=== PATIENT | female | born 1945 | race Caucasian/White ===

== ENCOUNTER 2017-12-22 23:45 | Emergency (ER) | payer MEDICARE, BC ==
--- NOTE | 2017-12-23 00:04 | EDM.PDOC ---
ED HPI GENERAL MEDICAL PROBLEM - General Chief Complaint: General Stated Complaint: dizzy arm pain Time Seen by Provider: 12/23/17 00:03 Source of Information: Reports: Patient, Family (spouse.) History Limitations: Reports: No Limitations - History of Present Illness INITIAL COMMENTS - FREE TEXT/NARRATIVE: 72-year-old female brought to the ED by her just due to feeling ill at home tonight. Symptoms started about 2 hours ago. She states she just doesn't feel right. She was having increased pain in her right shoulder down her right arm. She did shortness of breath. [place] a little dizzy lightheaded and a bit off in terms of balance. She states now she is feeling better. She takes gabapentin in the evenings and she does admit she did not eat that much for supper tonight. She has had no recent increased and dosages of 90 per medications. Blood pressure is mildly elevated at the time of exam. O2 sats 100% on room air. Respiratory rate of 20 by history patient has chronic musculoskeletal pain in all of her extremities which she relates is due to arthritis. Never been labeled as having fibromyalgia syndrome. Denies fever or chills. Denies any recent illnesses. Denies cough or sputum production. No recent prolonged travel history Onset: Today Onset Date: 12/22/17 Onset Time: 22:00 Duration: Hour(s): Location: Reports: Generalized (In light sense of feeling unwell with increased right shoulder pain shortness of breath and feeling dizzy and lightheaded. Feeling better at the time of examination) Quality: Reports: Other (Deep aching pain in her right shoulder and arm which is better now than it was.) Severity: Moderate (Initially the pain was 7 or 8 out of 10 now down to 2 or 3 which she states is her normal.) Improves with: Reports: Other (Improves spontaneously) Worsens with: Reports: Movement Context: Denies: Activity, Exercise (Augmentin activity does seem to make her generalized body ache worse), Sick Contact, Trauma, Other Associated Symptoms: Reports: Confusion, Malaise, Nausea/Vomiting (Mild nausea earlier tonight and asked why she did not eat much for supper), Shortness of Breath, Weakness (Generalized). 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: Other (see below) (Only her usual medications) Generalized Pain Score (Numeric/FACES): 2 - Related Data Allergies Allergy/AdvReac Type Severity Reaction Status Date / Time amitriptyline Allergy Itching Verified 12/23/17 00:15 morphine Allergy Swelling Verified 12/23/17 00:15 topiramate [From Topamax] AdvReac Hypertensio Verified 12/23/17 00:15 n Home Meds: Home Meds Aspirin [Halfprin] 81 mg PO DAILY 03/25/14 [History] Cholecalciferol (Vitamin D3) [Vitamin D] 1,000 units PO DAILY 03/25/14 [History] Gabapentin [Neurontin] 300 mg PO DAILY 03/25/14 [History] Propranolol [Inderal] 60 mg PO DAILY 03/25/14 [History] hydroCHLOROthiazide [Hydrochlorothiazide] 0 mg PO ASDIRECTED 03/25/14 [History] Acetaminophen [Tylenol Arthritis] 650 mg PO Q6HR PRN 12/23/17 [History] Gabapentin [Neurontin] 600 mg PO BEDTIME 12/23/17 [History] Multivitamin [Multi-Vitamin Daily] 1 tab PO DAILY 12/23/17 [History] Pravastatin Sodium [Pravachol] 12/23/17 [History] Past Medical History Cardiovascular History: Reports: High Cholesterol, Hypertension Gastrointestinal History: Reports: Other (See Below) (Occasional problems with diarrhea that she has to take Imodium for.) Musculoskeletal History: Reports: Osteoarthritis, Osteoporosis, Other (See Below ) (Normalized chronic pain syndrome typically chronic back pain. Has never been told she has fibromyalgia syndrome but she has multiple trigger points on examination.) Social & Family History - Living Situation & Occupation Living situation: Reports: Occupation: Retired ED ROS GENERAL - Review of Systems Review Of Systems: See Below Constitutional: Reports: Malaise, Weakness, Fatigue, Decreased Appetite ( Especially today.). Denies: Fever, Chills, Weight Loss HEENT: Reports: Glasses, Vertigo. Denies: Hearing Loss, Nosebleed, Nose Pain, Rhinitis, Sinus Problem, Throat Pain, Throat Swelling Respiratory: Reports: Shortness of Breath. Denies: Wheezing, Pleuritic Chest Pain (Mild vertigo symptoms earlier tonight.), Cough, Sputum Cardiovascular: Reports: Blood Pressure Problem (Chronic hypertension). Denies : Chest Pain Endocrine: Reports: Fatigue GI/Abdominal: Reports: Decreased Appetite, Nausea. Denies: Abdominal Pain, Anorexia, Vomiting (Mild intermittent) : Reports: Frequency. Denies: Dysuria, Flank Pain Musculoskeletal: Reports: Neck Pain, Shoulder Pain, Arm Pain, Back Pain, Hand Pain, Leg Pain, Joint Pain, Joint Swelling, Other ([place] hands and feet placed in her right big toe) Skin: Reports: No Symptoms Neurological: Reports: Paresthesia (Some paresthesias in her right arm and hand tonight. But was mostly deep aching pain) Psychiatric: Reports: No Symptoms Hematologic/Lymphatic: Reports: No Symptoms Immunologic: Reports: No Symptoms ED EXAM, GENERAL - Physical Exam Exam: See Below Exam Limited By: No Limitations General Appearance: Alert, WD/WN, Anxious (Moderately anxious.), Mild Distress Eye Exam: Bilateral Eye: Normal Inspection, Nystagmus Throat/Mouth: Normal Inspection, Normal Lips, Normal Teeth, Normal Oropharynx Head: Atraumatic, Normocephalic Neck: Normal Inspection, Supple, Non-Tender, Full Range of Motion. No: Carotid Bruit, Lymphadenopathy (L), Lymphadenopathy (R) Respiratory/Chest: No Respiratory Distress, Lungs Clear, Normal Breath Sounds, No Accessory Muscle Use, Respiratory Distress (Mild tachypnea at rest 20/m.), Other Cardiovascular: Normal Peripheral Pulses, Regular Rate, Rhythm, No Edema, No Gallop, No JVD, No Murmur (Kyphosis thoracic spine), No Rub Peripheral Pulses: 2+: Posterior Tibial (L), Posterior Tibial (R), Dorsalis Pedis (L), Dorsalis Pedis (R), 3+: Carotid (L), Carotid (R) GI/Abdominal: Normal Bowel Sounds, Soft, Non-Tender, No Organomegaly, No Mass, Pelvis Stable, Other (As had a hysterectomy.) Back Exam: Decreased Range of Motion (Mild kyphosis thoracic spine), Paraspinal Tenderness (Tender throughout the cervical the thoracic and lumbar spine particular on the right side.), Other Extremities: Normal Inspection ( No specific area of rib head subluxation identified), Normal Range of Motion, Non-Tender, No Pedal Edema, Other ( Evidence of osteophytic changes involving the PIP and DIP joints of her fingers right wrist) Neurological: Alert ( toes knees), Oriented, CN II-XII Intact, Normal Cognition Psychiatric: Anxious (Mildly anxious) Skin Exam: Warm, Dry, Intact, Normal Color, No Rash EKG INTERPRETATION EKG Date: 12/23/17 Time: 00:30 Rhythm: NSR Rate (Beats/Min): 72 [place]: LAD-Left [place] Deviation (-26.) P-Wave: Present QRS: Other (Initial poor R-wave progression in leads V1 to V3. Consider a possible old anteroseptal myocardial infarction. There is poor R-wave progression with delayed transition.) ST-T: Normal QT: Prolonged (Mildly prolonged) EKG Interpretation Comments: Abnormal ECG Course - Vital Signs Last Recorded V/S: Last Vital Signs Temp 36.2 C 12/22/17 23:57 Pulse 84 12/22/17 23:57 Resp 20 12/22/17 23:57 BP 183/95 H 12/22/17 23:57 Pulse Ox 100 12/22/17 23:57 - Orders/Labs/Meds Orders: Active Orders 24 hr Category Date Time Status EKG Documentation Completion [RC] STAT Care 12/23/17 00:15 Active Labs: Laboratory Tests 12/23/17 12/23/17 12/23/17 Range/Units 00:30 00:30 00:30 WBC 6.29 (3.98-10.04) K/mm3 RBC 4.24 (3.98-5.22) M/mm3 Hgb 12.4 (11.2-15.7) gm/L Hct 37.2 (34.1-44.9) % MCV 87.7 (79.4-94.8) fl MCH 29.2 (25.6-32.2) pg MCHC 33.3 (32.2-35.5) g/dl RDW Std Deviation 43.3 (36.4-46.3) fL Plt Count 207 (182-369) K/mm3 MPV 8.7 L (9.4-12.3) fl Neutrophils % (Manual) 63 H (40-60) % Band Neutrophils % 0 (0-10) % Lymphocytes % (Manual) 28 (20-40) % Atypical Lymphs % 1 % Monocytes % (Manual) 6 (2-10) % Eosinophils % (Manual) 1 (0.7-5.8) % Basophils % (Manual) 1 (0.1-1.2) Platelet Estimate Adequate Plt Morphology Comment Normal RBC Morph Comment Normal ESR 34 H (0-20) mm/hr D-Dimer, Quantitative (0.19-0.50) mg/L Sodium 140 (136-145) mEq/L Potassium 3.6 (3.5-5.1) mEq/L Chloride 107 (98-107) mEq/L Carbon Dioxide 26 (21-32) mEq/L Anion Gap 10.6 (5-15) BUN 25 H (7-18) mg/dL Creatinine 0.7 (0.55-1.02) mg/dL Est Cr Clr Drug Dosing 60.09 mL/min Estimated GFR (MDRD) > 60 (>60) mL/min BUN/Creatinine Ratio 35.7 H (14-18) Glucose 109 (83-115) mg/dL Calcium 8.9 (8.5-10.1) mg/dL Magnesium 2.2 (1.8-2.4) mg/dl Total Bilirubin 0.4 (0.2-1.0) mg/dL AST 21 (15-37) U/L ALT 31 (14-59) U/L Alkaline Phosphatase 68 (46-116) U/L CK-MB (CK-2) 1.2 (0-3.6) ng/ml Troponin I < 0.017 (0.00-0.056) ng/mL C-Reactive Protein 0.3 (<1.0) mg/dL Total Protein 7.0 (6.4-8.2) g/dl Albumin 3.8 (3.4-5.0) g/dl Globulin 3.2 gm/dL Albumin/Globulin Ratio 1.2 (1-2) Urine Color (Yellow) Urine Appearance (Clear) Urine pH (5.0-8.0) Ur Specific [place] (1.005-1.030) Urine Protein (Negative) Urine Glucose (UA) (Negative) Urine Ketones (Negative) Urine Occult Blood (Negative) Urine Nitrite (Negative) Urine Bilirubin (Negative) Urine Urobilinogen (0.2-1.0) Ur Leukocyte Esterase (Negative) Urine RBC (0-5) /hpf Urine WBC (0-5) /hpf Ur Epithelial Cells (0-5) /hpf Urine Bacteria (FEW) /hpf Urine Mucus (FEW) /hpf 12/23/17 12/23/17 Range/Units 00:30 00:53 WBC (3.98-10.04) K/mm3 RBC (3.98-5.22) M/mm3 Hgb (11.2-15.7) gm/L Hct (34.1-44.9) % MCV (79.4-94.8) fl MCH (25.6-32.2) pg MCHC (32.2-35.5) g/dl RDW Std Deviation (36.4-46.3) fL Plt Count (182-369) K/mm3 MPV (9.4-12.3) fl Neutrophils % (Manual) (40-60) % Band Neutrophils % (0-10) % Lymphocytes % (Manual) (20-40) % Atypical Lymphs % % Monocytes % (Manual) (2-10) % Eosinophils % (Manual) (0.7-5.8) % Basophils % (Manual) (0.1-1.2) Platelet Estimate Plt Morphology Comment RBC Morph Comment ESR (0-20) mm/hr D-Dimer, Quantitative 0.26 (0.19-0.50) mg/L Sodium (136-145) mEq/L Potassium (3.5-5.1) mEq/L Chloride (98-107) mEq/L Carbon Dioxide (21-32) mEq/L Anion Gap (5-15) BUN (7-18) mg/dL Creatinine (0.55-1.02) mg/dL Est Cr Clr Drug Dosing mL/min Estimated GFR (MDRD) (>60) mL/min BUN/Creatinine Ratio (14-18) Glucose (83-115) mg/dL Calcium (8.5-10.1) mg/dL Magnesium (1.8-2.4) mg/dl Total Bilirubin (0.2-1.0) mg/dL AST (15-37) U/L ALT (14-59) U/L Alkaline Phosphatase (46-116) U/L CK-MB (CK-2) (0-3.6) ng/ml Troponin I (0.00-0.056) ng/mL C-Reactive Protein (<1.0) mg/dL Total Protein (6.4-8.2) g/dl Albumin (3.4-5.0) g/dl Globulin gm/dL Albumin/Globulin Ratio (1-2) Urine Color Light yellow (Yellow) Urine Appearance Clear (Clear) Urine pH 7.5 (5.0-8.0) Ur Specific [place] 1.015 (1.005-1.030) Urine Protein Negative (Negative) Urine Glucose (UA) Negative (Negative) Urine Ketones Negative (Negative) Urine Occult Blood Negative (Negative) Urine Nitrite Negative (Negative) Urine Bilirubin Negative (Negative) Urine Urobilinogen 0.2 (0.2-1.0) Ur Leukocyte Esterase Negative (Negative) Urine RBC Not seen (0-5) /hpf Urine WBC Not seen (0-5) /hpf Ur Epithelial Cells 0-5 (0-5) /hpf Urine Bacteria Not seen (FEW) /hpf Urine Mucus Not seen (FEW) /hpf - Radiology Interpretation Free Text/Narrative:: 72-year-old female presents to the ED just generally not feeling well. She is coping by her . She states she filled offkilter she felt dizzy she felt increased pain in her right shoulder rating down her arm some associated shortness of breath some pain in her back. By history patient has chronic pain syndrome with fibromyalgia. Has diffuse osteophytic changes as well. She takes gabapentin 3 times a day 300 mg strength with no recent changes in any overt dosages of her medications. He does admit she took gabapentin tonight before bed and did not eat all that much before supper. Therefore for while she felt dizzy lightheaded did proceed. He felt disoriented. Her neuro exam is normal. Pain in her right arm and shoulder is back to its normal. Her range of motion was full with no evidence of rotator cuff tear. Lungs were clear heart was sinus. Blood pressure is elevated slightly. Mildly tachypnea But I think she was quite anxious when she came in. Plan routine labs and a chest x-ray to be done. Assess the findings with herself and her . She still having some intermittent right shoulder pain but the the right humerus is been fractured in 4 places prior. He often has quite bad pain in her right arm for which she uses Tylenol for. She looks better her color is better. Still have some question whether or not gabapentin absorbed rather quickly last evening causing her symptom complex. However labs are completely normal has no true chest pain. Will be discharged to home to use Tylenol as needed for pain relief follow-up with her primary care physician as needed. - Re-Assessments/Exams Free Text/Narrative Re-Assessment/Exam: 12/23/17 01:43 Labs are from most part back. White count is 6.29 with a differential pending. Hemoglobin is 12.4 with hematocrit of 37.2. MCV is normal at 87.7. Bili Is Normal 207,000. D-Dimer Is Normal at 0.26. Urinalysis Is Completely Normal. Chemistry is pending.01:41: Differential reveals 63% neutrophils no bands 20% lymphocytes. Sedimentation rate was 34. Chemistry shows a sodium of 140 potassium 3.6 chloride 17 bicarbonate 26. And a gap 10.6. BUN is 25 with a creatinine of 0.7. GFR remains greater than 60. Glucose 109 with a calcium of 8.9 magnesium is 2.2. Liver function is normal. CK-MB fraction 1.2 troponin I less than 0.017. C-reactive protein 0.3. Urinalysis is normal Departure - Departure Time of Disposition: 01:48 Disposition: Home, Self-Care 01 Condition: Fair Clinical Impression: Chronic right shoulder pain, Non-cardiac chest pain - Discharge Information *PRESCRIPTION DRUG MONITORING PROGRAM REVIEWED*: Not Applicable *COPY OF PRESCRIPTION DRUG MONITORING REPORT IN PATIENT FELISHA: Not Applicable Instructions: Shoulder Pain, [id number] Referrals: Pedrito Guerrero MD [Primary Care Provider] - Forms: ED Department Discharge Additional Instructions: Evaluation the emergent tonight due to suddenly feeling unwell late last evening. Sense of disorientation since of right chest pain with pain rating down the right arm and shoulder. Chronic right shoulder pain after humeral fractures in the past. Complete workup carried out to the ED did not reveal any evidence of heart related illness. No metabolic abnormalities were identified in lab tests or infections either. Clots were identified in the lungs. Unclear why you felt disoriented and offkilter and perhaps nauseated for a period of time sometimes the intensity of the pain could cause this type of reflux. Concerns that gabapentin absorption could've been faster than normal last evening if taken on an a relatively empty stomach. It could cause symptoms of intoxication like alcohol. I agree with treatment with Tylenol as needed for pain relief in your right shoulder which does act up from time to time. Continue all current medications as previously prescribed follow-up with your personal care physician if any further problems occur - My Orders Last 24 Hours: My Active Orders 12/23/17 00:15 EKG Documentation Completion [RC] STAT - Assessment/Plan Last 24 Hours: My Active Orders 12/23/17 00:15 EKG Documentation Completion [RC] STAT
== END 2017-12-23 01:59 | disposition home or self-care (01) ==
LOC: JD.ED 23:45
DX: R07.89 Other chest pain (principal); M25.511 Pain in right shoulder; G89.29 Other chronic pain; I10 Essential (primary) hypertension; Z79.899 Other long term (current) drug therapy; Z88.5 Allergy status to narcotic agent; Z79.82 Long term (current) use of aspirin
CPT/HCPCS: 36415; 80053; 81001; 82553; 83735; 84484; 85007; 85027; 85379; 85652; 86140; 93005; 93010; 99284-25

== ENCOUNTER 2019-05-10 07:06 | Day surgery (SDC) | payer MEDICARE, BC ==
[~2019-05-10 07:06] MED LIST: Lactated Ringers 1,000 ML IV SCH; Lidocaine 1%/Sod Bicarbonate in NS 8.4% 1 ML Syringe IDERM PRN; Sodium Chloride 0.9% 10 ML Syringe FLUSH PRN
[2019-05-10] MEDS ORDERED: Propofol 200 MG/20 ML SDV ONE (07:18)
[2019-05-10] MEDS ORDERED: Lidocaine 1% 4 ML ONE (07:18)
--- NOTE | 2019-05-10 07:31 | PCM.PREANE ---
Preanesthetic Assessment - Anesthesia/Transfusion/Family Hx Anesthesia History: Prior Anesthesia Reaction Type of Anesthesia Reaction: Other (see below) ([place]KSANDER) Family History of Anesthesia Reaction: No Transfusion History: No Prior Transfusion(s) - Review of Systems General: No Symptoms Pulmonary: No Symptoms Cardiovascular: No Symptoms Gastrointestinal: No Symptoms Neurological: No Symptoms Other: Reports: None - Physical Assessment NPO Status Date: 05/09/19 NPO Status Time: 19:00 ASA Class: 2 Mental Status: Alert & Oriented x3 Airway Class: Mallampati = 2 Thyro-Mental Finger Breadths: 2 Mouth Opening Finger Breadths: 2 ROM/Head Extension: Full Lungs: Clear to Auscultation, Normal Respiratory Effort Cardiovascular: Regular Rate, Regular Rhythm - Allergies Allergies/Adverse Reactions: Allergies Allergy/AdvReac Type Severity Reaction Status Date / Time amitriptyline Allergy Itching Verified 05/09/19 14:55 morphine Allergy Dizziness Verified 05/09/19 14:55 topiramate [From Topamax] AdvReac Hypertensio Verified 05/09/19 14:55 n - Acknowledgements Anesthesia Type Planned: MAC Pt an Appropriate Candidate for the Planned Anesthesia: Yes Alternatives and Risks of Anesthesia Discussed w Pt/Guardian: Yes Pt/Guardian Understands and Agrees with Anesthesia Plan: Yes PreAnesthesia Questionnaire HEENT History: Reports: Allergic Rhinitis, Cataract, Hard of Hearing, Impaired Vision, Retinal Detachment Cardiovascular History: Reports: High Cholesterol, Hypertension Respiratory History: Reports: None Gastrointestinal History: Reports: GERD, Irritable Bowel Syndrome, Other (See Below) Other Gastrointestinal History: abdominal pain, diarrhea Genitourinary History: Reports: None 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: , Other (See Below) Other OB/BYN History: atrophic vaginitis, vaginal itching Musculoskeletal History: Reports: Arthritis, Osteoarthritis, Osteoporosis, Other (See Below) Neurological History: Reports: Headaches, Chronic, Migraines, TIA Psychiatric History: Reports: Anxiety, Depression Endocrine/Metabolic History: Reports: Vitamin D Deficiency Hematologic History: Reports: Anemia Immunologic History: Reports: None Oncologic (Cancer) History: Reports: None Dermatologic History: Reports: Eczema - Infectious Disease History Infectious Disease History: Reports: Chicken Pox, Measles - Past Surgical History Head Surgeries/Procedures: Reports: None HEENT Surgical History: Reports: Cataract Surgery, Naso-Sinus Surgery Cardiovascular Surgical History: Reports: None Respiratory Surgical History: Reports: None GI Surgical History: Reports: Colonoscopy, EGD Female Surgical History: Reports: Hysterectomy Endocrine Surgical History: Reports: None Neurological Surgical History: Reports: None Musculoskeletal Surgical History: Reports: Joint Replacement Other Musculoskeletal Surgeries/Procedures:: toe Oncologic Surgical History: Reports: None Dermatological Surgical History: Reports: Skin Biopsy - SUBSTANCE USE Smoking Status *Q: Never Smoker Recreational Drug Use History: No - HOME MEDS Home Medications: Home Meds Calcium Carbonate [Calcium] 600 mg PO DAILY 05/09/19 [History] Cetirizine HCl [Zyrtec] 10 mg PO QID PRN 05/09/19 [History] Cholecalciferol (Vitamin D3) [Vitamin D3] 5,000 unit PO DAILY 05/09/19 [History] Denosumab [Prolia] 60 mg SQ ASDIRECTED 05/09/19 [History] Fish Oil/Decorah-3 Fatty Acids [Fish Oil 1,000 MG] 1 gm PO QID 05/09/19 [History] Fluconazole [Diflucan] 200 mg PO Q48H 05/09/19 [History] Gabapentin [Neurontin] 600 mg PO BEDTIME 05/09/19 [History] Loperamide [Imodium] 2 mg PO ASDIRECTED PRN 05/09/19 [History] Magnesium 250 mg PO TID 05/09/19 [History] Montelukast Sodium [Singulair] 10 mg PO DAILY 05/09/19 [History] Pantoprazole Sodium [Protonix] 20 mg PO DAILY 05/09/19 [History] Sodium Chloride [Saline Nasal [place]] 1 dose NASBOTH DAILY PRN 05/09/19 [History] Triamcinolone Acetonide [Nasacort] 1 dose NASBOTH DAILY 05/09/19 [History] hydrOXYzine HCL [hydrOXYzine] 75 mg PO BEDTIME 05/09/19 [History] - CURRENT (IN HOUSE) MEDS Current Meds: Current Medications Lactated Ringer's (Ringers, Lactated) 1,000 mls @ 125 mls/hr IV ASDIRECTED PETER Stop: 05/10/19 23:00 Lidocaine/Sodium Bicarbonate (Buffered Lidocaine 1% In Ns 8.4%) 0.25 ml IDERM ONETIME PRN PRN Reason: Prior to IV Start Stop: 05/10/19 18:00 Sodium Chloride (Saline Flush) 10 ml FLUSH ASDIRECTED PRN PRN Reason: Keep Vein Open Stop: 05/10/19 18:00 Discontinued Medications Lidocaine HCl (Xylocaine-Mpf 1%) Confirm Administered Dose 4 mls @ as directed .ROUTE .STK-MED ONE Stop: 05/10/19 07:19 Propofol (Diprivan 20 Ml) Confirm Administered Dose 200 mg .ROUTE .STK-MED ONE Stop: 05/10/19 07:19
--- NOTE | 2019-05-10 08:07 | PCM.PRNOTE ---
- Free Text/Narrative Note: Date: 05/10/2019 Procedure: diagnostic esophagogastroduodenoscopy Endoscopist: Tito Fagan MD Findings: normal appearance of duodenum and pyloric antrum. The body of the stomach appeared abnormal with cobblestoning of the gastric mucosa. No hiatal hernia appreciated. Normal Z line without gross evidence of esophagitis or metaplasia. Small submucosal mass at the posterior aspect of the distal 3rd of the esophagus (~25 cm distal to the incisors) biopsied. Detailed Report: The patient was taken to the endoscopy suite and placed in left lateral decubitus position. Timeout was performed, and monitored anesthesia care was initiated. Once sedation was adequate, bite-block was placed and lubricated endoscope inserted into the mouth. The scope was advanced all the way to the second portion of the duodenum easily. No mucosal abnormalities were noted within the duodenum, including the duodenal bulb. Withdrawal of the scope was then slowly performed, with mucosal surfaces inspected. The pylorus appeared grossly normal, as well as the antral mucosa. The body of the stomach had an abnormal appearance, with mucosa appearing to have a cobblestone type pattern. No active inflammation or ulceration was noted. On retroflexion of the scope in the stomach, the fundus appeared grossly normal, and there is no evidence of hiatal hernia. Scope was then withdrawn into the distal esophagus. The Z line appeared grossly normal, there was no evidence of gross metaplasia or esophagitis. In the distal third of the esophagus, at the posterior aspect a small submucosal mass was noted. This was biopsied with forceps. In total, 5 biopsies were obtained; a sample of duodenal mucosa, antral mucosa, gastric body mucosa, distal esophageal mucosa and the submucosal esophageal mass were biopsied. Patient tolerated the procedure well. Tito Fagan MD General Surgery
--- NOTE | 2019-05-10 08:08 | PCM48HPAN ---
Post Anesthesia Note - EVALUATION WITHIN 48HRS OF ANESTHETIC Vital Signs in Normal Range: Yes Patient Participated in Evaluation: Yes Respiratory Function Stable: Yes Airway Patent: Yes Cardiovascular Function Stable: Yes Hydration Status Stable: Yes Pain Control Satisfactory: Yes Nausea and Vomiting Control Satisfactory: Yes Mental Status Recovered: Yes Vital Signs: Last Vital Signs Temp 36.4 C 05/10/19 07:10 Pulse 64 05/10/19 07:10 Resp 16 05/10/19 07:10 BP 134/72 05/10/19 07:10 Pulse Ox 97 05/10/19 07:10
== END 2019-05-10 08:51 | disposition home or self-care (01) ==
LOC: JD.SDS 07:06
PROVIDERS: ATTEND Surgery
DX: K29.50 Unspecified chronic gastritis without bleeding (principal); K20.9 Esophagitis, unspecified; K21.9 Gastro-esophageal reflux disease without esophagitis; E78.5 Hyperlipidemia, unspecified; M19.90 Unspecified osteoarthritis, unspecified site; I10 Essential (primary) hypertension; M81.0 Age-related osteoporosis without current pathological fracture; E55.9 Vitamin D deficiency, unspecified; E78.00 Pure hypercholesterolemia, unspecified; E03.9 Hypothyroidism, unspecified; Z88.5 Allergy status to narcotic agent; Z88.8 Allergy status to other drugs, medicaments and biological substances; Z79.899 Other long term (current) drug therapy
CPT/HCPCS: 43239; J2001; J2704; J7120; 00731; 88305

== ENCOUNTER 2019-08-28 02:56 | Emergency (ER) | payer MEDICARE, BC ==
[2019-08-28] MEDS ORDERED: HYDROmorphone 1 MG/ML Syringe IVPUSH ONE (03:21)
--- NOTE | 2019-08-28 03:39 | EDM.PDOC ---
ED HPI GENERAL MEDICAL PROBLEM - General Chief Complaint: Upper Extremity Injury/Pain Stated Complaint: RECENT LUNG SURGERY LEFT ARM NUNBNESS Time Seen by Provider: 08/28/19 03:10 Source of Information: Reports: Patient, Family History Limitations: Reports: No Limitations - History of Present Illness INITIAL COMMENTS - FREE TEXT/NARRATIVE: The patient presents with left arm pain. 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 She was discharged on Thursday. She has pain in the area where the surgery was in the left upper back. She also has some pain in her left arm. Tonight the pain was much worse and it woke her up at 1am. It is an achy pain in her hand, wrist and left forearm. She did not hurt her arm at all. She does have some ecchymosis from IVs and blood draws in that arm. She has no swelling to her arm. She has some tingling in her arm at times. She has no weakness. She has no fever, chills, cough, chest pain, shortness of breath, headache, vision changes, abdominal pain, nausea or vomiting. Onset: Gradual Duration: Hour(s): Location: Reports: Upper Extremity, Left (arm) Quality: Reports: Ache Severity: Moderate Improves with: Reports: None Worsens with: Reports: None Associated Symptoms: Reports: No Other Symptoms Left Arm Pain Score (Numeric/FACES): 6 - Related Data Allergies Allergy/AdvReac Type Severity Reaction Status Date / Time amitriptyline Allergy Itching Verified 08/28/19 03:04 morphine Allergy Dizziness Verified 08/28/19 03:04 topiramate [From Topamax] AdvReac Hypertensio Verified 08/28/19 03:04 n Home Meds: Home Meds Calcium Carbonate [Calcium] 600 mg PO DAILY 05/09/19 [History] Cetirizine HCl [Zyrtec] 10 mg PO QID PRN 05/09/19 [History] Cholecalciferol (Vitamin D3) [Vitamin D3] 5,000 unit PO DAILY 05/09/19 [History] Denosumab [Prolia] 60 mg SQ ASDIRECTED 05/09/19 [History] Fish Oil/Somers-3 Fatty Acids [Fish Oil 1,000 MG] 1 gm PO QID 05/09/19 [History] Fluconazole [Diflucan] 200 mg PO Q48H 05/09/19 [History] Gabapentin [Neurontin] 600 mg PO BEDTIME 05/09/19 [History] Loperamide [Imodium] 2 mg PO ASDIRECTED PRN 05/09/19 [History] Magnesium 250 mg PO TID 05/09/19 [History] Montelukast Sodium [Singulair] 10 mg PO DAILY 05/09/19 [History] Pantoprazole Sodium [Protonix] 20 mg PO DAILY 05/09/19 [History] Sodium Chloride [Saline Nasal [place]] 1 dose NASBOTH DAILY PRN 05/09/19 [History] Triamcinolone Acetonide [Nasacort] 1 dose NASBOTH DAILY 05/09/19 [History] hydrOXYzine HCL [hydrOXYzine] 75 mg PO BEDTIME 05/09/19 [History] Past Medical History HEENT History: Reports: Allergic Rhinitis, Cataract, Hard of Hearing, Impaired Vision, Retinal Detachment Cardiovascular History: Reports: Arrhythmia, High Cholesterol, Hypertension Respiratory History: Reports: None Gastrointestinal History: Reports: GERD, Irritable Bowel Syndrome, Other (See Below) Other Gastrointestinal History: abdominal pain, diarrhea Genitourinary History: Reports: None [employer]ED [employer] OPERATOR History: Reports: , Other (See Below) Other [employer] OPERATOR History: atrophic vaginitis, vaginal itching Musculoskeletal History: Reports: Arthritis, Osteoarthritis, Osteoporosis, Other (See Below) Neurological History: Reports: Headaches, Chronic, Migraines, TIA Psychiatric History: Reports: Anxiety, Depression Endocrine/Metabolic History: Reports: Vitamin D Deficiency Hematologic History: Reports: Anemia Immunologic History: Reports: None Oncologic (Cancer) History: Reports: Lung Dermatologic History: Reports: Eczema - Infectious Disease History Infectious Disease History: Reports: Chicken Pox, Measles - Past Surgical History Head Surgeries/Procedures: Reports: None HEENT Surgical History: Reports: Cataract Surgery, Naso-Sinus Surgery Cardiovascular Surgical History: Reports: None Respiratory Surgical History: Reports: Lung Biopsies Other Respiratory Surgeries/Procedures: Lobectomy GI Surgical History: Reports: Colonoscopy, EGD Female Surgical History: Reports: Hysterectomy Endocrine Surgical History: Reports: None Neurological Surgical History: Reports: None Musculoskeletal Surgical History: Reports: Joint Replacement Other Musculoskeletal Surgeries/Procedures:: toe Oncologic Surgical History: Reports: Lobectomy Dermatological Surgical History: Reports: Skin Biopsy Social & Family History - Family History Family Medical History: Noncontributory - Tobacco Use Smoking Status *Q: Never Smoker - Caffeine Use Caffeine Use: Reports: Tea - Living Situation & Occupation Living situation: Reports: Occupation: Retired Review of Systems - Review of Systems Review Of Systems: See Below Constitutional: Reports: No Symptoms Eyes: Reports: No Symptoms Ears: Reports: No Symptoms Nose: Reports: No Symptoms Mouth/Throat: Reports: No Symptoms Respiratory: Reports: No Symptoms Cardiovascular: Reports: No Symptoms GI/Abdominal: Reports: No Symptoms Genitourinary: Reports: No Symptoms Musculoskeletal: Reports: Other (Left arm pain) ED EXAM, GENERAL - Physical Exam Exam: See Below Exam Limited By: No Limitations General Appearance: Alert, No Apparent Distress Ears: Normal External Exam Nose: Normal Inspection Head: Atraumatic, Normocephalic Neck: Normal Inspection, Supple, Non-Tender Respiratory/Chest: No Respiratory Distress, Lungs Clear, Normal Breath Sounds, Other (Scar to the left upper back) Cardiovascular: Regular Rate, Rhythm, No Edema, No Murmur GI/Abdominal: Soft, Non-Tender, No Organomegaly, No Mass Extremities: Other (No pain upon palpation to the left arm. Ecchymosis to both arms in different areas. Good sensation and pulses distally. Pain reproduced with flexion at her wrist and taping on her volar wrist.) EKG INTERPRETATION EKG Date: 08/28/19 Time: 03:26 Rhythm: NSR Rate (Beats/Min): 74 [place]: Normal P-Wave: Present QRS: Normal ST-T: Normal QT: Normal Course - Vital Signs Last Recorded V/S: Last Vital Signs Temp 98.5 F 08/28/19 03:04 Pulse 81 08/28/19 03:04 Resp 14 08/28/19 03:04 BP 162/88 H 08/28/19 03:04 Pulse Ox 96 08/28/19 03:04 - Orders/Labs/Meds Orders: Active Orders 24 hr Category Date Time Status Cardiac Monitoring [RC] . DIRECTED Care 08/28/19 03:19 Active EKG Documentation Completion [RC] STAT Care 08/28/19 03:20 Active Peripheral IV Care [RC] . DIRECTED Care 08/28/19 03:20 Active Ang Chest [CT] Stat Exams 08/28/19 04:13 Taken Sodium Chloride 0.9% [Normal Saline] 100 ml Med 08/28/19 04:15 Active IV ASDIRECTED Sodium Chloride 0.9% [Saline Flush] Med 08/28/19 03:19 Active 10 ml FLUSH ASDIRECTED PRN Durable Medical Equipment for Discharge [DME for Oth 08/28/19 03:21 Ordered Discharge] [COMM] Stat Peripheral IV Insertion Adult [OM.PC] Stat Oth 08/28/19 03:19 Ordered Medication Orders Sodium Chloride (Normal Saline) 100 mls @ 80 mls/hr IV ASDIRECTED PETER Last Admin: 08/28/19 04:36 Dose: 80 mls/hr Sodium Chloride (Saline Flush) 10 ml FLUSH ASDIRECTED PRN PRN Reason: Keep Vein Open Last Admin: 08/28/19 04:36 Dose: 10 ml Admin: 08/28/19 03:40 Dose: 10 ml Labs: Laboratory Tests 08/28/19 08/28/19 Range/Units 03:39 03:39 WBC 8.02 (3.98-10.04) K/mm3 RBC 3.78 L (3.98-5.22) M/mm3 Hgb 11.2 D (11.2-15.7) gm/dl Hct 34.6 (34.1-44.9) % MCV 91.5 (79.4-94.8) fl MCH 29.6 (25.6-32.2) pg MCHC 32.4 (32.2-35.5) g/dl RDW Std Deviation 49.1 H (36.4-46.3) fL Plt Count 479 H D (182-369) K/mm3 MPV 7.9 L (9.4-12.3) fl Neut % (Auto) 63.2 (34.0-71.1) % Lymph % (Auto) 19.1 L (19.3-51.7) % [place] % (Auto) 14.6 H (4.7-12.5) % Eos % (Auto) 2.2 (0.7-5.8) Baso % (Auto) 0.5 (0.1-1.2) % Neut # (Auto) 5.07 (1.56-6.13) K/mm3 Lymph # (Auto) 1.53 (1.18-3.74) K/mm3 [place] # (Auto) 1.17 H (0.24-0.36) K/mm3 Eos # (Auto) 0.18 (0.04-0.36) K/mm3 Baso # (Auto) 0.04 (0.01-0.08) K/mm3 Sodium 142 (136-145) mEq/L Potassium 4.0 (3.5-5.1) mEq/L Chloride 105 (98-107) mEq/L Carbon Dioxide 32 (21-32) mEq/L Anion Gap 9.0 (5-15) BUN 27 H (7-18) mg/dL Creatinine 0.9 (0.55-1.02) mg/dL Est Cr Clr Drug Dosing 45.04 mL/min Estimated GFR (MDRD) > 60 (>60) mL/min BUN/Creatinine Ratio 30.0 H (14-18) Glucose 103 (83-115) mg/dL Calcium 9.2 (8.5-10.1) mg/dL Total Bilirubin 0.3 (0.2-1.0) mg/dL AST 57 H (15-37) U/L ALT 106 H (14-59) U/L Alkaline Phosphatase 253 H (46-116) U/L Troponin I < 0.017 (0.00-0.056) ng/mL Total Protein 6.9 (6.4-8.2) g/dl Albumin 3.3 L (3.4-5.0) g/dl Globulin 3.6 gm/dL Albumin/Globulin Ratio 0.9 L (1-2) Meds: Medications Generic Name Dose Route Start Last Admin Trade Name Freq PRN Reason Stop Dose Admin Sodium Chloride 100 mls @ 80 mls/hr 08/28/19 04:15 08/28/19 04:36 Normal Saline IV 80 mls/hr ASDIRECTED PETER Administration Sodium Chloride 10 ml 08/28/19 03:19 08/28/19 04:36 Saline Flush FLUSH 10 ml ASDIRECTED PRN Administration Keep Vein Open Discontinued Medications Generic Name Dose Route Start Last Admin Trade Name Freq PRN Reason Stop Dose Admin Hydromorphone HCl 1 mg 08/28/19 03:21 08/28/19 03:40 Dilaudid IVPUSH 08/28/19 03:22 1 mg ONETIME ONE Administration Iopamidol 100 ml 08/28/19 04:15 08/28/19 04:36 Isovue-370 (76%) IVPUSH 08/28/19 04:16 100 ml ONETIME ONE Administration - Re-Assessments/Exams Free Text/Narrative Re-Assessment/Exam: 08/28/19 03:41 I ordered an IV saline lock, EKG, labs, dilaudid 1mg IV and I will order a CT angio of her chest. 08/28/19 05:12 Her CBC looks good. Her EKG shows a NSR with no acute changes. Her AST is elevated at 57. Her ALT is elevated at 106. Her alk phos is elevated at 253. Her troponin is negative. I am waiting for the CT results. 08/28/19 05:[address] shows no evidence of pulmonary embolism. Severe stenosis of proximal segmental branches to the anterior left lower lobe, likely postsurgical. Interval left upper lobectomy. Small left pleural effusion with loculated components. Trivial left pneumothorax which may be postsurgical. Sever narrowing of the primary bronchus of the left lower lobe. Atelectasis in the left lower lobe. Stable nonspecific small 9mm ground-glass nodular opacity in the right upper lobe. Recommend CT at 6-12 months to confirm persistence of the nodule, then CT at 3 and at 5 years. This may be some carpal tunnel the way her exam was. I will have her use her pain meds and wear the splint. She has a follow up appointment with her thoracic surgeon on Thursday. I have sent the CT to [facility] in [place]. Departure - Departure Time of Disposition: :40 Disposition: Home, Self-Care 01 Condition: Good Clinical Impression: Left arm pain - Discharge Information *PRESCRIPTION DRUG MONITORING PROGRAM REVIEWED*: Not Applicable *COPY OF PRESCRIPTION DRUG MONITORING REPORT IN PATIENT FELISHA: Not Applicable Referrals: Pedrito Guerrero MD [Primary Care Provider] - 1 Week Forms: ED Department Discharge Additional Instructions: Take your medication as prescribed. Wear the splint for a few days especially at night when you sleep. I feel that will help. Follow up with your doctor on Thursday. Please return if you are worse. Sepsis Event Note - Evaluation Sepsis Screening Result: No Definite Risk - Focused Exam Vital Signs: Vital Signs Temp Pulse Resp BP Pulse Ox 08/28/19 03:04 98.5 F 81 14 162/88 H 96 Date Exam was Performed: 08/28/19 Time Exam was Performed: 05:39 - My Orders Last 24 Hours: My Active Orders 08/28/19 03:19 Cardiac Monitoring [RC] . DIRECTED Sodium Chloride 0.9% [Saline Flush] 10 ml FLUSH ASDIRECTED PRN Peripheral IV Insertion Adult [OM.PC] Stat 08/28/19 03:20 EKG Documentation Completion [RC] STAT Peripheral IV Care [RC] . DIRECTED 08/28/19 03:21 Durable Medical Equipment for Discharge [DME for Discharge] [COMM] Stat 08/28/19 04:13 Ang Chest [CT] Stat 08/28/19 04:15 Sodium Chloride 0.9% [Normal Saline] 100 ml IV ASDIRECTED - Assessment/Plan Last 24 Hours: My Active Orders 08/28/19 03:19 Cardiac Monitoring [RC] . DIRECTED Sodium Chloride 0.9% [Saline Flush] 10 ml FLUSH ASDIRECTED PRN Peripheral IV Insertion Adult [OM.PC] Stat 08/28/19 03:20 EKG Documentation Completion [RC] STAT Peripheral IV Care [RC] . DIRECTED 08/28/19 03:21 Durable Medical Equipment for Discharge [DME for Discharge] [COMM] Stat 08/28/19 04:13 Ang Chest [CT] Stat 08/28/19 04:15 Sodium Chloride 0.9% [Normal Saline] 100 ml IV ASDIRECTED
[2019-08-28] MEDS: Sodium Chloride 0.9% 10 ML Syringe FLUSH PRN ×2 (03:40→04:36)
[2019-08-28] MEDS ORDERED: Iopamidol 755 Mg/ML 100 ML Bottle IVPUSH ONE (04:15)
[2019-08-28] MEDS ORDERED: Sodium Chloride 0.9% 100 ML IV SCH (04:15)
--- NOTE | 2019-08-29 06:51 | CT ---
CT chest Technique: Multiple axial sections were obtained from above the lung apices inferiorly through the lung bases. Intravenous contrast was utilized. Study performed as a pulmonary angiogram protocol. Comparison: Prior chest CT study of 05/25/19. Findings: Aorta shows no aneurysm or dissection. Pulmonary arteries show no filling defects to indicate pulmonary embolism. Lower left lung volume is seen compatible with previous left-sided surgery. Small left-sided pleural effusion is noted. This appears to be mostly loculated. Soft tissue density is noted within the left hilum most likely relating to previous surgery. Areas of atelectasis are noted within the right lung base. Small groundglass nodule is noted within the right upper lung which remains stable from previous exam. No definite acute parenchymal change is appreciated. Heart is enlarged. Low density nodule is noted within the right adrenal gland. This measures about 1.1 cm in size and is believed to be stable and most likely due to adrenal adenoma. Impression: 1. No findings of pulmonary embolism. No thoracic aortic aneurysm or dissection. 2. Previous surgery within the left chest. 3. Left-sided pleural effusion which appears mostly loculated. 4. Groundglass nodule within the right upper chest similar to prior chest CT. Recommend repeat study of the chest in one year. Diagnostic code #9 This report was dictated in MDT I agree with preliminary report from derek, finalized on 08/28/19, 6:29 AM Central Daylight Time
== END 2019-08-28 06:00 | disposition home or self-care (01) ==
LOC: JD.ED 02:56
DX: S40.022A Contusion of left upper arm, initial encounter (principal); S40.021A Contusion of right upper arm, initial encounter; I10 Essential (primary) hypertension; E78.00 Pure hypercholesterolemia, unspecified; K21.9 Gastro-esophageal reflux disease without esophagitis; G43.909 Migraine, unspecified, not intractable, without status migrainosus; F41.9 Anxiety disorder, unspecified; F32.9 Major depressive disorder, single episode, unspecified; Z86.73 Personal history of transient ischemic attack (TIA), and cerebral infarction without residual deficits; Z88.5 Allergy status to narcotic agent; Z88.8 Allergy status to other drugs, medicaments and biological substances; Z79.899 Other long term (current) drug therapy; X58.XXXA Exposure to other specified factors, initial encounter
CPT/HCPCS: 36415; 71275; 80053; 84484; 85025; 93005; 96374; 99284; J1170; J7050; Q9967; 93010; 99283

== ENCOUNTER 2022-02-06 00:36 | Emergency (ER) | payer MEDICARE, BC ==
[2022-02-06] MEDS ORDERED: Sodium Chloride 0.9% 10 ML Syringe FLUSH PRN (01:19)
[2022-02-06] MEDS ORDERED: methylPREDNISolone Sodium Succinate 125 MG/2 ML SDV IVPUSH ONE (01:20)
[2022-02-06] MEDS ORDERED: Sodium Chloride 0.9% 1,000 ML IV ONE (01:20)
[2022-02-06] MEDS ORDERED: EPINEPHrine 1 MG/ML SDV IM PRN (01:21)
[2022-02-06] MEDS ORDERED: Ketorolac 15 MG/ML SDV IVPUSH ONE (01:21)
[2022-02-06] MEDS ORDERED: Famotidine 20 MG/2 ML SDV IVPUSH PRN (01:21)
[2022-02-06] MEDS ORDERED: methylPREDNISolone Sodium Succinate 125 MG/2 ML SDV IVPUSH PRN (01:21)
[2022-02-06] MEDS ORDERED: diphenhydrAMINE 50 MG/ML SDV IVPUSH PRN (01:21)
[2022-02-06] MEDS ORDERED: Sodium Chloride 0.9% 10 ML Syringe FLUSH SCH (01:30)
== END 2022-02-06 03:05 | disposition home or self-care (01) ==
LOC: JD.ED 00:36
DX: U07.1 COVID-19 (principal); J02.9 Acute pharyngitis, unspecified; I10 Essential (primary) hypertension; K21.9 Gastro-esophageal reflux disease without esophagitis; M19.90 Unspecified osteoarthritis, unspecified site; Z88.8 Allergy status to other drugs, medicaments and biological substances; Z88.5 Allergy status to narcotic agent; Z79.899 Other long term (current) drug therapy
CPT/HCPCS: 36415; 71045; 71045-26; 80053; 85025; 96374; 96375; 99283-25; J1885; J2930; J7030; M0222; Q0222

== ENCOUNTER 2024-12-29 19:15 | Emergency (ER) | payer MEDICARE, BC ==
[2024-12-29] MEDS: Acetaminophen/HYDROcodone 325-5 MG Tab PO ONE (19:51)
== END 2024-12-29 22:09 | disposition home or self-care (01) ==
LOC: JD.ED 19:15
DX: S42.251A Displaced fracture of greater tuberosity of right humerus, initial encounter for closed fracture (principal); S42.211A Unspecified displaced fracture of surgical neck of right humerus, initial encounter for closed fracture; I10 Essential (primary) hypertension; E78.00 Pure hypercholesterolemia, unspecified; K21.9 Gastro-esophageal reflux disease without esophagitis; Z86.73 Personal history of transient ischemic attack (TIA), and cerebral infarction without residual deficits; Z86.16 Personal history of COVID-19; Z79.899 Other long term (current) drug therapy; Z79.82 Long term (current) use of aspirin; Z88.5 Allergy status to narcotic agent; Z88.8 Allergy status to other drugs, medicaments and biological substances; W01.198A Fall on same level from slipping, tripping and stumbling with subsequent striking against other object, initial encounter; Y93.K1 Activity, walking an animal; Y92.480 Sidewalk as the place of occurrence of the external cause
CPT/HCPCS: 73030; 73070; 99283; A9270; 99284